=== PATIENT | female | born 1980 | race Caucasian/White ===

== ENCOUNTER 2016-12-19 23:24 | Inpatient (IN) ==
--- NOTE | 2016-12-19 23:48 | OB/GYN History & Physical ---
Date of Encounter: 12/19/16 Time of Encounter: 23:45 Assessment and Plan (1) and not yet delivered in third trimester Current visit: Yes Status: Acute (2) 35 weeks gestation of Current visit: Yes Status: Acute (3) Premature rupture of membranes Current visit: Yes Status: Acute Qualifiers: PROM onset of labor timing: onset of labor within 24 hours of rupture PROM gestational age: -third trimester Qualified Code(s): O42.013 - premature rupture of membranes, onset of labor within 24 hours of rupture, third trimester (4) Active labor Current visit: Yes Status: Acute Qualifiers: Fetus number: single or unspecified fetus Qualified Code(s): O60.10X0 - labor with delivery, unspecified trimester, not applicable or unspecified (5) Aortic valve stenosis Current visit: No Status: Chronic Qualifiers: Cardiac valve disease etiology: etiology unspecified Qualified Code(s): I35.0 - Nonrheumatic aortic (valve) stenosis (6) History of section, low transverse Current visit: No Status: Chronic We will prep the patient for a repeat low transverse section History of Present Illness HPI: Ms. Montiel is a 36 year old female 2 para 0101 at 35-4/7 weeks who presented to labor and delivery with complaint of spontaneous rupture membranes at 2230. Patient states she had large gush of fluid at home and started to contract after this. Patient was noted to be grossly ruptured on admission. Patient has a history of a previous section 1 with a history of bicuspid aortic valve. Patient states her modeling instructor told her it was safe for her to deliver at [place] we have no documentation for this. Patient has seen maternal medicine because of advanced maternal age and history of cardiac issues but again there is been no formal notification from any modeling instructor the patient is safe to deliver. Patient did deliver her first child at this institution and is had a laparoscopy here without any complications. Patient states she was diagnosed at the age of 3 and has been asymptomatic. Patient does have a history of delivery with her first baby at 35 weeks had nonreassuring heart tones and was an emergency section. Patient states she is beginning to contract right now states approximately 7-10 minutes apart getting a little bit more comfortable. Past Med Surg Social Fam HX - Past Medical History Source: patient, old records reviewed (biscuspic aortic valve) Medical history: valvular heart disease, other (Degenerative disc disease and lumbar disc herniation) Psychiatric history: no psych history - Past Surgical History Surgical History: no surgical history, - Social History Smoking Status: Never smoker Smokeless Tobacco Status: No Alcohol use: none Drug use: none Current living situation: Home - Independent Recent Out of Country Travel Within the Last 8 Weeks: No Exposure or Possible Exposure to Illness During Travel: No - Family History Mother Hx Family Cardiac Disorders: Yes (HTN) - Additional Family History Additional family history: family history non contributory Obstetrical History - Pregnancies : 2 Para: 1 Term: 0 : 1 Ab's: 0 Livin Medications and Allergies Progesterone,Micronized [Progesterone] 200 mg VG DAILY 10/06/16 [History] Allergies No Known Allergies Allergy (Verified 10/06/16 19:13) Review of System OB All systems PM: reviewed and no additional remarkable complaints except as stated - Genitourinary Genitourinary: other (Spontaneous rupture of membranes) Exam - Constitutional Constitutional: well developed, well nourished, moderate distress, obese - HEENT HEENT: Mucus Membranes Moist - Neck Neck exam: full ROM - Lungs Respiratory exam: CTAB - Cardiovascular Cardiovascular exam: irregular rhythm - Abdomen Abdomen: Present: gravid - Cervix Dilation: 2 Effacement: 80 Station: -3 - Comments Comments: grossly ruptured, Results All other labs normal.
[2016-12-19 23:58] LABS: Basophils % 0.1 %; Eosinophils # 0.1 K/mcL (0.0-0.6); Eosinophils % 1.3 %; Hematocrit 29.5 % (35.3-44.9); Hemoglobin 9.2 g/dL (11.5-15.4); Immature Granulocytes % 0.9 % (0-4); Lymphocytes # 2.2 K/mcL (0.6-4.6); Lymphocytes % 23.8 %; Mean Corpuscular HGB Conc 31.2 g/dL (31.6-35.5); Mean Corpuscular Hemoglobin 22.6 pg (28.0-33.3); Mean Corpuscular Volume 72.5 fL (83.0-100.0); Mean Platelet Volume 12.3 fL (9.4-12.4); Monocytes # 0.7 K/mcL (0.0-1.3); Monocytes % 7.5 %; Neutrophils # 6.2 K/mcL (1.6-8.9); Nucleated Red Blood Cells 0.3 /100 WBC (0); Platelet Count 242 K/mcL (140-400); Red Blood Count 4.07 M/mcL (3.82-4.97); Red Cell Distribution Width 14.7 % (11.5-14.5); Segmented Neutrophils % 66.4 %
[2016-12-19] MEDS ORDERED: Ringers Solution, Lactated 1,000 ML ONE (23:58)
[2016-12-20] MEDS ORDERED: CeFAZolin Pre 2,000 MG/100 ML 2,000 MG/100 ML BAG IVPB ONE (00:02)
[2016-12-20] MEDS ORDERED: Ringers Solution, Lactated 1,000 ML IVC ONE ×2 (00:02→00:12)
--- NOTE | 2016-12-20 00:03 | Anesthesia Evaluation PreOp ---
Date of Encounter: 12/19/16 Time of Encounter: 23:46 - Past History Planned Operation: Spinal/general for Csection Cardiac History: Other (congenital bicuspid aortic valve) Pulmonary History: Denies Any Significant HX ELECTRICAL SUBCONTRACTOR History: Denies Any Significant HX Other Medical History: GERD Anesthesia History: No Prior Anesthetic Complications, Past Anesthesia (teeth extraction, previous csection) : Yes Test: Negative Alcohol Use: none Drug use: none Medications and Allergies Progesterone,Micronized [Progesterone] 200 mg VG DAILY 10/06/16 [History] Allergies No Known Allergies Allergy (Verified 10/06/16 19:13) - Meds/Allergy Pre-op Review Medications Reviewed: Yes Allergies Reviewed: No Beta Blockers on Current Med List: No Anesthesia Exam Vital Signs Temperature 97.2 F L 12/19/16 23:40 Pulse Rate 86 12/19/16 23:40 Respiratory Rate 14 12/19/16 23:40 Blood Pressure 157/90 12/19/16 23:40 Temperature 97.2 F L 12/19/16 23:40 Pulse Rate 86 12/19/16 23:40 Respiratory Rate 14 12/19/16 23:40 Blood Pressure 157/90 12/19/16 23:40 Height: 5'5" Weight: 115kg NPO (# of Hours): 4 Pain Scale: 4 (with contractions) Pain Scale Used: Numeric (1 - 10) - HEENT Pupil (Motor): Pupils equal Mallampati: III Teeth: Missing Oral Opening: Greater than 3 - ELECTRICAL SUBCONTRACTOR LOC: Oriented ELECTRICAL SUBCONTRACTOR Motor: Normal RUE, Normal LUE, Normal RLE, Normal LLE, Normal Face ELECTRICAL SUBCONTRACTOR Sensory: Normal: RUE, LUE, RLE, LLE, Face - Cardiac Rhythm: Regular Murmur: None JVD: No Carotid Bruit: No - Pulmonary Breath Sounds: bilateral Clear Respiratory Effort: Symmetrical Anesthesia Assess/Plan ASA Score: 3 Modified Templeton Scale for Level of Consciousness: Cooperative, oriented, and tranquil Anesthetic Plan: General Autologous Blood: Yes Monitoring Plan: Standard Monitors Recovery Plan: PACU
[2016-12-20] MEDS ORDERED: *HR* HYDROmorphone (PF) 1 MG/ML SYRINGE IVP PRN (00:07)
[2016-12-20] MEDS ORDERED: *HR* Promethazine 25 MG/ML VIAL IVP PRN (00:07)
[2016-12-20] MEDS ORDERED: Ondansetron 4 MG/2 ML VIAL IVP ONE (00:07)
[2016-12-20] MEDS ORDERED: Metoclopramide 10 MG/2 ML VIAL IVP ONE (00:12)
[2016-12-20] MEDS ORDERED: Famotidine 20 MG/2 ML VIAL IVP ONE (00:12)
[2016-12-20] MEDS ORDERED: CeFAZolin Pre 3,000 MG/100 ML 3,000 MG/100 ML BAG IVPB ONE (00:12)
[2016-12-20] MEDS ORDERED: *HR* Etomidate 40 MG/20 ML VIAL IVP ONE (00:15)
[2016-12-20] MEDS ORDERED: Oxytocin 20 units/ LR 1000 mL 20 UNIT/1,000 ML BAG IVC SCH (00:15)
[2016-12-20] MEDS ORDERED: Ringers Solution, Lactated 1,000 ML IVC SCH ×4 (00:15→02:03)
[2016-12-20] MEDS ORDERED: *HR* Propofol 200 MG/20 ML VIAL IVP ONE (00:16)
[2016-12-20] MEDS ORDERED: *HR* FentaNYL (PF) 100 MCG/2 ML VIAL ONE (00:24)
[2016-12-20] MEDS ORDERED: *HR* Oxytocin 10 UNIT/ML VIAL IM ONE ×2 (00:49→00:55)
[2016-12-20] MEDS ORDERED: Dexamethasone 4 MG/ML VIAL ONE (00:54)
[2016-12-20] MEDS ORDERED: *HR* Succinylcholine 200 MG/10 ML VIAL IVP ONE (00:54)
[2016-12-20] MEDS ORDERED: Ondansetron 4 MG/2 ML VIAL ONE (00:54)
[2016-12-20] MEDS ORDERED: *HR* HYDROmorphone (PF) 1 MG/ML SYRINGE ONE (01:10)
--- NOTE | 2016-12-20 01:37 | OB/GYN Procedure Note ---
Section - Date of procedure: 12/20/16 Preop diagnosis: other (IUP at 35 4/7 wks, PPROM, active Labor, previous section x 1) Post-op diagnosis: same (with partial abruption) Procedure: repeat low transverse Surgeon: Abdullahi Carlton Estimated blood loss (cc): 1,000 Manager Technology: Bettye Smith ([email or web address]) Anesthesiologist: Bo Mccurdy Event Lighting Specialist: Anshul Cedillo Anesthesia Type: General section complications: uterine atony Disposition: L&D Recovery Room Specimens: Placenta - Infant (s) A Delivery Date: 12/20/16 Infant Delivery Time: 00:46 Presentation: vertex Position: THAD Route of delivery: other ( section) Gender: Female Viability: Viable Pounds: 7 Ounces: 1 Gram Weight: 3.195 kg at 1 minute: 8 at 5 minutes: 9 Specimens collected: cord blood Placenta: complete extraction - Narrative Narrative: Patient is a 36-year-old 2 para 0101 at 35-4/7 weeks who presents with and delivery with complaint of spontaneous rupture membranes at 2230 on the sixth. Patient states she had large gush of fluid and then started having contractions. Upon arrival to labor and delivery patient with a be grossly ruptured. Patient started juan after rupture membranes and the she starting out at 10-15 minutes apart but were getting closer and stronger while she was here. Patient's history was complicated with a previous section and a history of a bicuspid aortic valve. Patient was cleared by her folded towel machine operator to deliver at this facility. Because he did not have any records of this anesthesia was concerned and felt it would be best to do general anesthesia to control her blood pressure better and since she ate 2-1/2 hours prior to coming in they would want her to wait a full 8 hours before doing a C- section on the spinal and the patient would not tolerate that contractions began to strong and is concerned we are going to cause issues with her previous scar. An emergency section was called. Procedure: Patient was taken operating room where she was placed in dorsal supine position prepped and draped in usual fashion. Timeout was then obtained this was then followed with general anesthesia. Once patient was asleep a Pfannenstiel incision was made with a scalpel and carried down through the underlying tissue to fascia was identified. Fascia was nicked in midline extended laterally with the Garnett scissors. The superior and inferior edges of the fascia grasped tented up and dissected off the rectus muscles. Rectus muscles were in the midline parietal peritoneum was identified tented up and entered sharply. This was extended superiorly inferiorly with Metzenbaum scissors. The bladder blade was inserted this a uterine peritoneum was identified tented up and entered sharply. This was extended laterally the bladder flap was created digitally. The lower uterine segment was incised with the scalpel extended laterally with digital manipulation. Membranes are ruptured 's head was then delivered through the incision followed by delivery of the infant. The cord was clamped and cut was handed off to waiting pediatric team. Cord blood was collected placenta was then manually removed uterus is exteriorized and cleaned of all clots and debris. After this time it appeared to be an abruption going on there was clots attached to the myometrium and to the posterior aspect of the placenta. We ran into some uterine atony requiring fundal massage and Pitocin to finally get the uterus to contract down. We did lose moderate amount of blood during this timeframe. Once we had the uterus tightened up the lower uterine segment was then closed using an 0 Vicryl in a running locking stitch particular closure. Good hemostasis was noted at this point. Uterus was returned to the abdomen and gutters were cleaned of all clots and debris and copiously irrigated. The fascia was then closed using a #1 stratafix in a running stitch the subcutaneous tissue was brought together with an 0 plain and the skin was closed using a 4-0 Vicryl subcuticular manner. All needles lap and sponge counts were correct 3 and she tolerated the delivery well. Patient was placed on a SANITATION TANK WASHER pump for pain control she did receive preoperative antibiotics.
[2016-12-20] MEDS ORDERED: *HR* HYDROmorphone 20 MG/20 ML PCA IVC PRN ×2 (02:02→02:03)
[2016-12-20] MEDS ORDERED: Simethicone 80 MG TAB.CHEW PO PRN (02:03)
[2016-12-20] MEDS ORDERED: Oxytocin 20 units/ LR 1000 mL 20 UNIT/1,000 ML BAG IV SCH (02:03)
[2016-12-20] MEDS ORDERED: Ondansetron 4 MG/2 ML VIAL IVP PRN (02:03)
[2016-12-20] MEDS ORDERED: *HR* OxyCODONE/APAP 5/325 TABLET PO PRN (02:03)
[2016-12-20] MEDS ORDERED: Sennosides 8.6 MG TABLET PO PRN (02:03)
--- NOTE | 2016-12-20 02:36 | Anesthesia Evaluation Post Op ---
Date of Encounter: 12/20/16 Time of Encounter: 02:35 - Vital Signs Vital Signs: BP 148/82 P88 R 16 T 98.7 - Lungs Lungs: Clear Ascult./Percussion - Airway Airway: Non-obstructed - Cardiovascular Regular Rate - Mental Status Mental Status: Alert & Oriented, Answers Appropriately - Pain Pain Scale: 4 Pain Scale used: Numeric (1 - 10) - Nausea Vomiting Nausea Vomiting: Not Present - Hydration Hydration: NPO, Rivera catheter - Discharge PostOp Status: Transfer Patient to floor
[2016-12-20 04:33] LABS: Basophils % 0.1 %; Hematocrit 24.8 % (35.3-44.9); Hemoglobin 7.8 g/dL (11.5-15.4); Immature Granulocytes % 0.7 % (0-4); Lymphocytes # 1.1 K/mcL (0.6-4.6); Mean Corpuscular HGB Conc 31.5 g/dL (31.6-35.5); Mean Corpuscular Hemoglobin 23.4 pg (28.0-33.3); Mean Corpuscular Volume 74.3 fL (83.0-100.0); Mean Platelet Volume 13.1 fL (9.4-12.4); Monocytes # 0.4 K/mcL (0.0-1.3); Platelet Count 200 K/mcL (140-400); Red Blood Count 3.34 M/mcL (3.82-4.97); Red Cell Distribution Width 14.8 % (11.5-14.5); Segmented Neutrophils % 92.2 %
[2016-12-20 04:34] LABS: Neutrophils # 20.3 K/mcL (1.6-8.9)
[2016-12-20] MEDS ORDERED: Ringers Solution, Lactated 500 ML IVC ONE (07:25)
[2016-12-20] MEDS ORDERED: Prenatal Vit/FA 1 EACH TABLET PO SCH (09:00)
[2016-12-20] MEDS: Prenatal Vit/FA 1 EACH TABLET PO SCH (09:18)
[2016-12-20] MEDS: Ibuprofen 600 MG TABLET PO PRN (21:07)
[2016-12-21 04:39] LABS: Basophils % 0.2 %; Eosinophils # 0.1 K/mcL (0.0-0.6); Hematocrit 20.9 % (35.3-44.9); Hemoglobin 6.4 g/dL (11.5-15.4); Immature Granulocytes % 0.9 % (0-4); Immature Platelets 10.6 % (1.1-6.1); Lymphocytes # 2.6 K/mcL (0.6-4.6); Lymphocytes % 21.3 %; Mean Corpuscular HGB Conc 30.6 g/dL (31.6-35.5); Mean Corpuscular Hemoglobin 22.7 pg (28.0-33.3); Mean Corpuscular Volume 74.1 fL (83.0-100.0); Mean Platelet Volume 12.5 fL (9.4-12.4); Monocytes # 0.6 K/mcL (0.0-1.3); Monocytes % 5.2 %; Neutrophils # 8.8 K/mcL (1.6-8.9); Nucleated Red Blood Cells 0.2 /100 WBC (0); Platelet Count 190 K/mcL (140-400); Red Blood Count 2.82 M/mcL (3.82-4.97); Segmented Neutrophils % 71.4 %
[2016-12-21] MEDS: Prenatal Vit/FA 1 EACH TABLET PO SCH (10:57)
[2016-12-21] MEDS: Ibuprofen 600 MG TABLET PO PRN (10:59)
[2016-12-21 13:41] LABS: Hematocrit 25.6 % (35.3-44.9); Hemoglobin 7.8 g/dL (11.5-15.4)
[2016-12-22] MEDS: Ibuprofen 600 MG TABLET PO PRN (00:07)
[2016-12-22] MEDS: Prenatal Vit/FA 1 EACH TABLET PO SCH (08:15)
[2016-12-22 08:22] VITALS: BP 145/93
--- NOTE | 2016-12-22 13:04 | Discharge Summary ---
Date of Encounter: 12/22/16 Time of Encounter: 13:00 - Discharge Diagnosis (1) delivery delivered Priority: Primary Status: Acute Comments: Pt meeting post-op milestones. (2) anemia Priority: Secondary Status: Acute - Discharge Medications Prescriptions: OxyCODONE/APAP 5/325 [Percocet 5/325 MG] 1 each PO Q4HR PRN #20 tablet PRN Reason: Moderate pain 4-6 Ibuprofen [Motrin] 600 mg PO Q6HR PRN #60 tablet PRN Reason: Cramping Docusate [Colace] 100 mg PO BID #60 capsule Ferrous Sulfate 325 mg PO DAILY #30 tablet Home Medications: Tablet 1 tab PO DAILY 12/19/16 [History] Docusate [Colace] 100 mg PO BID #60 capsule 12/22/16 [Rx] Ferrous Sulfate 325 mg PO DAILY #30 tablet 12/22/16 [Rx] Ibuprofen [Motrin] 600 mg PO Q6HR PRN #60 tablet 12/22/16 [Rx] OxyCODONE/APAP 5/325 [Percocet 5/325 MG] 1 each PO Q4HR PRN #20 tablet 12/22/16 [Rx] Simethicone [Gas-X] 80 mg PO TID PRN #0 tab.chew 12/22/16 [Rx] Allergies/Adverse Reactions: Allergies No Known Allergies Allergy (Verified 10/06/16 19:13) Data Procedures and tests throughout hospitalization: Laboratory Tests 12/19/16 12/20/16 12/21/16 23:40 03:31 03:56 WBC 9.3 22.0 H D 12.3 H RBC 4.07 3.34 L 2.82 L Hgb 9.2 L 7.8 L 6.4 L Hct 29.5 L 24.8 L 20.9 L MCV 72.5 L 74.3 L 74.1 L MCH 22.6 L 23.4 L 22.7 L MCHC 31.2 L 31.5 L 30.6 L RDW 14.7 H 14.8 H 15.0 H Plt Count 242 200 190 MPV 12.3 13.1 H 12.5 H Immature Gran % 0.9 0.7 0.9 Seg Neutrophils % 66.4 92.2 71.4 Lymphocytes % 23.8 5.0 21.3 Monocytes % 7.5 2.0 5.2 Eosinophils % 1.3 0.0 1.0 Basophils % 0.1 0.1 0.2 Neutrophils # 6.2 20.3 H 8.8 Lymphocytes # 2.2 1.1 2.6 Monocytes # 0.7 0.4 0.6 Eosinophils # 0.1 0.0 0.1 Basophils # 0.0 0.0 0.0 Nucleated RBCs/100 WBC 0.3 H 0.2 H Immature Plt Fraction 10.6 H 12/21/16 13:33 WBC RBC Hgb 7.8 L Hct 25.6 L MCV MCH MCHC RDW Plt Count MPV Immature Gran % Seg Neutrophils % Lymphocytes % Monocytes % Eosinophils % Basophils % Neutrophils # Lymphocytes # Monocytes # Eosinophils # Basophils # Nucleated RBCs/100 WBC Immature Plt Fraction Labs on day of discharge: Labs from last 24 hours 12/21/16 13:33 Hgb 7.8 L Hct 25.6 L Date of admission: 12/19/16 23:24 Primary care physician: Keara Yancey CNP Discharging clinician: Iveth Archibald Anticipated date of discharge: 12/22/16 - Patient Status Disposition: Home, Self-Care Condition: Good Functional capacity at discharge: independent ambulation Overall status at discharge: patient is progressing back to baseline - Discharge Instructions Follow Up With: Keara Yancey CNP [Primary Care Provider] - Winston Yee MD [Partnered Physician] - - Diet and Activity Activity: increase activity as tolerated Hospital Course Reason for admission: active labor Delivery: section Episiotomy: none Laceration: none complications: none Discharge diagnosis: delivery [place] baby: female Hospital course: - Date of procedure: 12/20/16 Preop diagnosis: other (IUP at 35 4/7 wks, PPROM, active Labor, previous section x 1) Post-op diagnosis: same (with partial abruption) Procedure: repeat low transverse Surgeon: Abdullahi Carlton Estimated blood loss (cc): 1,000 Commercial Fisherman: Bettye Smith ([email or web address]) Anesthesiologist: Bo Mccurdy Transportation Attendant: Anshul Cedillo Anesthesia Type: General section complications: uterine atony Disposition: L&D Recovery Room Specimens: Placenta - (s) A Infant Delivery Date: 12/20/16 Delivery Time: 00:46 Presentation: vertex Position: THAD Route of delivery: other ( section) Gender: Female Viability: Viable Pounds: 7 Ounces: 1 Gram Weight: 3.195 kg at 1 minute: 8 at 5 minutes: 9 Specimens collected: cord blood Placenta: complete extraction Time Attestation: Total time spent providing and/or coordinating discharge services: Time Spent: Less than 30 minutes - VTE Documentation of Mechanical Device: Intermittent pneumatic compression device Exam - Constitutional Vitals: Temp Pulse Resp BP Pulse Ox 98.1 F 92 16 145/93 100 12/22/16 08:21 12/22/16 08:21 12/22/16 08:21 12/22/16 08:21 12/21/16 21:45 General appearance IM: A&O X 3, pleasant, no acute distress - Respiratory Respiratory exam: Present: CTAB - Cardiovascular Cardiovascular exam IM: Present: RRR, +S1, +S2 - GI/Abdominal GI/Abdominal exam IM: soft, no peritoneal signs Incision: dry, intact (steri strips in place) - Rectal Rectal exam: deferred - Uterine Tone: Firm Uterus Position: 1 Finger Below Umbilicus - Extremities Exam Extremities exam IM: Present: normal inspection, pedal edema (2+ bilaterally, no erythema or warmth) - Neurological Exam Neurological exam: normal gait, oriented X3 - Psychiatric Additional comments: reports good mood - Other Additional findings: OARRS reviewed
== END 2016-12-22 14:15 | disposition home or self-care (01) | DRG 540 ==
LOC: 1NENULAB → 1NENUOBS 12-20 04:08
PROVIDERS: ADMIT Obstetrics & Gynecology; ATTEND Obstetrics & Gynecology